=== PATIENT | male | born 1955 | race Caucasian/White ===

== ENCOUNTER 2016-09-06 08:31 | Emergency (ER) | payer OTHER, MEDICARE ==
[~2016-09-06] VITALS: Ht 180.3 cm; Wt 132.1 kg
[~2016-09-06 08:31] MED LIST: ADVIL200 MG PO; AMLODIPINE BESYL5 MG PO; ASPIR-LOW81 MG PO; ASPIRIN325 MG; ASPIRIN81 M2 PO; ATORVASTATIN CA20 MG PO; CELERY SEED; CIPRO250 MG PO; COLACE100 MG PO; COLBENEMID1 TABLET PO; COZAAR100 MG PO; DULCOLAX5 MG PO; FISH OIL PO; FUROSEMIDE20 MG PO; GABAPENTIN300 MG PO; HYDROCHLOROTHIA25 MG PO; HYDROCODON-ACE1 EAC7 PO; INDOCIN50 MG PO; LASIX20 MG PO; LEVAQUIN500 MG PO; LIDOCAINE700 MG TD; LISINOPRIL20 MG PO; LOSARTAN POTAS100 MG PO; LOSARTAN POTASS50 MG PO; MOTRIN600 MG PO; NORCO 7.5/321 TABLET PO; PERCOCET 5/31 TABLET PO; PHENERGAN-CODE120 ML PO; PRILOSEC OTC20 MG PO; PRILOSEC20 MG PO; ROXICODONE5 MG PO; TAMSULOSIN HCL0.4 MG PO; Vicodin,Lortab 5/500 PO; ZOFRAN ODT4 MG PO
[2016-09-06 08:55] LABS: HEMATOCRIT 42.7 % (38.0-50.0); MCH 30.9 PG (29.0-34.0); MCHC 34.2 G/DL (30.0-36.0); MCV 90.5 FL (86-99); MEAN PLAT.VOLUME 11.8 uM^3 (9.0-12.4); PLATELET COUNT 85 K/uL (156-360); RBC DIS.WIDTH-CV 13.2 % (11.8-14.6); RED BLOOD COUNT 4.72 M/uL (4.00-5.50); WHITE BLOOD COUNT 3.8 K/uL (4.1-10.2)
[2016-09-06 09:03] LABS: CHLORIDE 107 mEq/L (99-109); POTASSIUM 4.1 mEq/L (3.7-5.4); SODIUM 140 mEq/L (136-147)
[2016-09-06 09:05] LABS: GLUCOSE 120 mg/dL (70-99)
[2016-09-06 09:06] LABS: ANION GAP 7 MEQ/L (2-14)
[2016-09-06 09:09] LABS: GFR ESTIMATE (CALCULATED) > 59 mL/min/
[2016-09-06 09:10] LABS: UREA NITROGEN (BUN) 21 mg/dL (9-23)
[2016-09-06 09:15] LABS: TROP-I INTERPRETATION NEGATIVE; TROPONIN-I < 0.01 ng/mL (0.0-0.30)
[2016-09-06 11:10] LABS: TROP-I INTERPRETATION NEGATIVE; TROPONIN-I < 0.01 ng/mL (0.0-0.30)
[2016-09-06 12:30] VITALS: BP 127/73
== END 2016-09-06 13:06 | disposition home or self-care (01) ==
LOC: EME 08:31
PROVIDERS: Emergency Medicine
DX: R07.89 Other chest pain (principal); I50.9 Heart failure, unspecified; I11.0 Hypertensive heart disease with heart failure; K21.9 Gastro-esophageal reflux disease without esophagitis; M10.9 Gout, unspecified; Z88.0 Allergy status to penicillin
CPT/HCPCS: 71020; 80048; 84484; 85027; 93005; 99281; 99282; J7030

== ENCOUNTER 2016-12-03 08:29 | Emergency (ER) | payer OTHER ==
[~2016-12-03] VITALS: Ht 180.3 cm; Wt 132.0 kg
[2016-12-03 08:52] LABS: HEMATOCRIT 43.9 % (38.0-50.0); MCH 30.7 PG (29.0-34.0); MCHC 33.9 G/DL (30.0-36.0); MCV 90.3 FL (86-99); MEAN PLAT.VOLUME 11.6 uM^3 (9.0-12.4); PLATELET COUNT 104 K/uL (156-360); RBC DIS.WIDTH-SD 42.5 % (39-53); RED BLOOD COUNT 4.86 M/uL (4.00-5.50); WHITE BLOOD COUNT 6.5 K/uL (4.1-10.2)
[2016-12-03 09:03] LABS: CHLORIDE 107 mEq/L (99-109); SODIUM 141 mEq/L (136-147)
[2016-12-03 09:05] LABS: GLUCOSE 117 mg/dL (70-99)
[2016-12-03 09:06] LABS: ANION GAP 11 MEQ/L (2-14)
[2016-12-03 09:07] LABS: TOTAL BILIRUBIN 0.5 mg/dL (0.0-1.0)
[2016-12-03 09:08] LABS: ALKALINE PHOSPHATASE 95 IU/L (3-129)
[2016-12-03 09:09] LABS: GFR ESTIMATE (CALCULATED) 50 mL/min/
[2016-12-03 09:10] LABS: UREA NITROGEN (BUN) 22 mg/dL (9-23)
[2016-12-03 09:12] LABS: LIPASE 20 U/L (1.0-51.0)
[2016-12-03 09:23] LABS: ADD MIUA? YES; BILIRUBIN NEGATIVE; BLOOD LARGE; COLOR YELLOW ((YELLOW)); GLUCOSE (STRIP) NEGATIVE; KETONES NEGATIVE; LEUKOCYTES NEGATIVE; NITRITE NEGATIVE; PROTEIN (STRIP) 30; SPECIFIC GRAVITY 1.018 (1.000-1.030); UROBILINOGEN 0.2 MG/DL (0.2-1.0)
[2016-12-03 09:33] LABS: BACTERIA NONE SEEN /HPF; EPITHELIAL CELLS NONE SEEN /HPF; MUCUS TRACE /LPF; RED BLOOD CELLS TNTC /HPF (0-5); UCUL ADDED? YES; WHITE BLOOD CELLS 0-5 /HPF (0-5)
[2016-12-03] MEDS ORDERED: LOSARTAN POTAS100 MG PO (09:44)
[2016-12-03] MEDS ORDERED: POTASSIUM CITR15 MEQ PO (09:44)
[2016-12-03 11:59] LABS: BASE EXCESS 3.6 mEq/L (-3 to +3); BICARBONATE 28.5 mEq/L (22-26); CARBOXY HGB 2.5 % (0-5); METHEMOGLOBIN 0.9 % (0-1.5); PCO2 43 mm Hg (35-45); pH 7.43 (7.35-7.45)
[2016-12-03 12:01] LABS: COMMENTS - BLOOD GASES A+C+; FI02 21 %; SITE RR
[2016-12-03 12:02] LABS: PO2 43 mm Hg (80-100)
[2016-12-03 12:44] LABS: TROP-I INTERPRETATION NEGATIVE; TROPONIN-I 0.01 ng/mL (0.0-0.30)
[2016-12-03] MEDS ORDERED: LEVAQUIN500 MG PO (14:45)
[2016-12-03] MEDS ORDERED: FLOMAX0.4 MG PO (14:51)
[2016-12-03] MEDS ORDERED: PERCOCET 5/31 TABLET PO (14:51)
[2016-12-03 15:20] VITALS: BP 117/69
== END 2016-12-03 15:21 | disposition home or self-care (01) ==
LOC: EME 08:29
PROVIDERS: Emergency Medicine
DX: J40 Bronchitis, not specified as acute or chronic (principal); N20.2 Calculus of kidney with calculus of ureter; I13.0 Hypertensive heart and chronic kidney disease with heart failure and stage 1 through stage 4 chronic kidney disease, or unspecified chronic kidney disease; N18.9 Chronic kidney disease, unspecified; I50.9 Heart failure, unspecified; Z87.442 Personal history of urinary calculi; K21.9 Gastro-esophageal reflux disease without esophagitis; M10.9 Gout, unspecified; Z88.0 Allergy status to penicillin
CPT/HCPCS: 36600; 71020; 71275; 74176; 80053; 81003; 82803; 83690; 84484; 85027; 87086; 93005; 94640; 99281; 99285